=== PATIENT | male | born 1995 | race Asian ===

== ENCOUNTER → 2017-02-26 | Outpatient (CLI) | payer OTHER ==
[~2017-02-26] MED LIST: INHALER INH
[2017-02-26 08:19] LABS: ASPARTATE AMINO TRANSFERASE 13 U/L (15-37); BLOOD UREA NITROGEN 13 mg/dL (7-18)
== END | disposition home or self-care (01) ==
LOC: LAB 07:42
PROVIDERS: ATTEND Emergency Medicine
DX: R10.9 Unspecified abdominal pain (principal)
CPT/HCPCS: 36415; 80053; 81003; 82150; 82248; 83690; 84443; 85025; 86677

== ENCOUNTER 2017-08-08 21:22 | Emergency (ER) | payer SELFPAY ==
[~2017-08-08] VITALS: Ht 180.3 cm; Wt 79.7 kg
[2017-08-08 21:58] LABS: HEMATOCRIT 47.6 % (39.2-51.8); WHITE BLOOD COUNT 10.9 x10^3/uL (3.4-10)
[2017-08-08] MEDS ORDERED: ONDANSETRON 2MG/ML, 2ML IVPush ONE (22:00)
[2017-08-08] MEDS ORDERED: SODIUM CHLORIDE 0.9% 1,000ML IVBOLUS ONE (22:00)
[2017-08-08] MEDS ORDERED: MORPHINE SULFATE 4 MG/ML, 1ML IVPush PRN (22:00)
[2017-08-08] MEDS ORDERED: SODIUM CHLORIDE FLUSH 10ML SYR IVF ONE (22:00)
[2017-08-08 22:05] VITALS: BP 124/82
[2017-08-08 22:08] LABS: ASPARTATE AMINO TRANSFERASE 18 U/L (15-37); BLOOD UREA NITROGEN 17 mg/dL (7-18)
[2017-08-08] MEDS ORDERED: ONDANSETRON 2MG/ML, 2ML ONE (22:23)
[2017-08-08] MEDS ORDERED: morphine SULFATE 10 MG/ML, 1ML ONE (22:23)
[2017-08-08] MEDS ORDERED: OMNIPAQUE 350 MG/ML, 100ML BOTTLE ONE (22:41)
== END 2017-08-08 23:28 | disposition home or self-care (01) ==
LOC: ED 21:55
DX: R10.84 Generalized abdominal pain (principal)
CPT/HCPCS: 36415; 74177; 76700; 80053; 81003; 83690; 85025; 96361; 96374; 96375; 99285; J2405; J7030; Q9967

== ENCOUNTER 2020-12-01 12:16 | Emergency (ER) | payer MEDICAID ==
[~2020-12-01] VITALS: Ht 180.3 cm; Wt 96.7 kg
[2020-12-01 14:27] LABS: BASOPHILS % (AUTO) 1 % (0-1); EOSINOPHILS % (AUTO) 0 % (1-7); LYMPHOCYTES % (AUTO) 7 % (22-44); MD NO; MEAN CORPUSCULAR HEMOGLOBIN 29.8 pg (27.5-34.5); MEAN CORPUSCULAR HGB CONC 33.2 g/dL (33.2-36.2); MEAN PLATELET VOLUME 8.5 fL (7.4-10.4); MONOCYTES % (AUTO) 8 % (2-9); NEUTROPHILS % (AUTO) 84 % (42-75); PLATELET COUNT 289 x10^3/uL (130-400); RED BLOOD COUNT 5.17 x10^6/uL (4.38-5.82); RED CELL DISTRIBUTION WIDTH 14.2 % (9.4-14.8)
--- NOTE | 2020-12-01 14:30 | NUR ---
GRAY TENDER: PT TO ROOM FROM [facility]
[2020-12-01 14:37] LABS: ALBUMIN 4.1 g/dL (3.4-5.0); ANION GAP 7 mmol/L (5-15); CALCIUM 8.4 mg/dL (8.5-10.1); CHLORIDE 104 mmol/L (98-107); CREATININE 1.39 mg/dL (0.7-1.3)
[2020-12-01 14:41] LABS: TROPONIN I < 0.015 ng/mL (0.000-0.045)
[2020-12-01] MEDS ORDERED: SODIUM CHLORIDE FLUSH 10ML SYR IVF ONE (15:00)
[2020-12-01] MEDS ORDERED: SODIUM CHLORIDE 0.9% 1,000ML IVBOLUS ONE (15:00)
[2020-12-01] MEDS ORDERED: LORazepam 2 MG/ML, 1ML IVPush ONE (15:00)
--- NOTE | 2020-12-01 15:00 | NUR ---
REPORT FROM SHAD IZQUIERDO
[2020-12-01] MEDS ORDERED: LORazepam 2 MG/ML, 1ML ONE (15:04)
--- NOTE | 2020-12-01 15:55 | NUR ---
pt reports feeling "dizzy and out of it" after ativan and bolus given.
[2020-12-01 16:19] VITALS: BP 127/43
== END 2020-12-01 16:30 | disposition home or self-care (01) ==
LOC: ED 16:00
DX: F14.10 Cocaine abuse, uncomplicated (principal); F41.9 Anxiety disorder, unspecified; R00.0 Tachycardia, unspecified; R07.89 Other chest pain; R00.2 Palpitations; J45.909 Unspecified asthma, uncomplicated
CPT/HCPCS: 36415; 71045; 80048; 82040; 84484; 85025; 93005; 96361; 96374; 99285; J2060; J7030